=== PATIENT | female | born 1995 | race Caucasian/White ===

== ENCOUNTER → 2016-11-18 | Outpatient (CLI) | payer BC ==
[2016-11-18 17:35] LABS: HEMOGLOBIN 13.6 gm/dl (12.3-15.3); RED BLOOD COUNT 4.49 M/UL (4.00-5.10); WHITE BLOOD COUNT 7.9 K/UL (4.5-11.0)
[2016-11-18 18:06] LABS: BUN/CREATININE RATIO 20 (0-10)
== END ==
LOC: LAB 16:48
PROVIDERS: Nurse Practitioner Family
DX: R00.0 Tachycardia, unspecified (principal)
CPT/HCPCS: 36415; 80053; 80061; 82607; 83036; 84439; 84443; 84479; 85025; 93005

== ENCOUNTER → 2016-12-09 | Outpatient (CLI) | payer BC | LOC: US 12-02 12:30 | DX: E07.9 Disorder of thyroid, unspecified (principal); R93.8 Abnormal findings on diagnostic imaging of other specified body structures | CPT/HCPCS: 76536 ==